=== PATIENT | female | born 1985 | race Caucasian/White ===

== ENCOUNTER 2016-10-19 17:57 | Emergency (ER) | payer BC, MEDICAID, OTHER ==
[2016-10-19] MEDS ORDERED: DIPHENHYDRAMINE HCL IV 50 MG/ML VIAL IVP ONE (18:54)
[2016-10-19] MEDS ORDERED: METOCLOPRAMIDE HCL 10 MG/2 ML VIAL IVP ONE (18:54)
[2016-10-19] MEDS ORDERED: METHYLPREDNISOLONE PF 125MG/VIAL IVP ONE (18:54)
--- NOTE | 2016-10-19 18:59 | Emergency Department Record ---
History of Present Illness - General Chief Complaint: Shortness of breath Stated Complaint: SOB,SCANLON,WEAKNESS IN RT ARM Time Seen by Provider: 10/19/16 18:53 Source: Patient Mode of Arrival: Ambulatory Limitations: No limitations - History of Present Illness Initial Comments: 31 yo female presents to ED with a CC of headache for the past 3 days associated with numbness to the right UE. Patient reports daily headaches, however this episode is more severe than her typical headache and Topamax has not been working for her. Patient reports a previous history of cervical spine disc herniations that contribute to her daily headaches as well as previous TBI. Patient reports negative CT imaging in June for a similar headache. Patient denies fevers, chills, neck stiffness, or weakness to the extremities on examination. Onset/Timin -: Days(s) Radiation: Other Severity: Moderate Severity scale (1-10): 7 Quality: Throbbing Consistency: Constant Improves With: Nothing Worsens With: Nothing Associated Symptoms: Nausea/vomiting Treatment Prior to Arrival Comment:: Soma and topamax - Related Data Home Oxygen Therapy: No Home Medications Medication Instructions Recorded Confirmed Last Taken Carisoprodol [Soma] 350 mg PO ASDIR 10/19/16 10/19/16 10/19/16 Dextroamphetamine/Amphetamine 15 mg PO DAILY 10/19/16 10/19/16 Unknown [Adderall] Levothyroxine Sodium 50 mcg PO DAILY 10/19/16 10/19/16 10/19/16 Topiramate [Topamax] 100 mg PO DAILY 10/19/16 10/19/16 10/19/16 Venlafaxine HCl [Effexor] 150 mg PO DAILY 10/19/16 10/19/16 Unknown Allergies Allergy/AdvReac Type Severity Reaction Status Date / Time lamotrigine [From Lamictal] Allergy RASH Verified 10/19/16 18:08 Travel Screening - Travel/Exposure Within Last 30 Days Have you traveled within the last 30 days?: No Review of Systems Constitutional: Denies: Chills, Fever, Malaise, Night sweats Eyes: Denies: Eye discharge, Eye pain ENT: Denies: Congestion, Ear pain, Epistaxis Respiratory: Denies: Cough Cardiovascular: Denies: Chest pain, Dyspnea on exertion Endocrine: Denies: Fatigue, Heat or cold intolerance Gastrointestinal: Reports: Nausea, Vomiting. Denies: Abdominal pain Genitourinary: Denies: Incontinence, Retention Musculoskeletal: Denies: Arthralgia, Back pain, Gout, Joint swelling Skin: Denies: Bruising, Change in color Neurological: Reports: Headache, Numbness. Denies: Abnormal gait, Confusion, Tingling Psychiatric: Denies: Anxiety Hematological/Lymphatic: Denies: Anemia, Blood Clots Past Medical History - SOCIAL HISTORY Smoking Status: Light tobacco smoker (<10/day) Alcohol Use: Occasional Drug Use: None - RESPIRATORY Hx Respiratory Disorders: No - CARDIOVASCULAR Hx Cardio Disorders: No - NEURO Hx Neuro Disorders: Yes Hx Headaches: Yes (migraines) Comment:: TBI - GI Hx GI Disorders: No - Hx Genitourinary Disorders: No - ENDOCRINE Hx Endocrine Disorders: Yes Hx Thyroid Disease: Yes - MUSCULOSKELETAL Hx Musculoskeletal Disorders: Yes Comment:: bulging discs, bone spurs - PSYCH Hx Psych Problems: Yes Hx Anxiety: Yes Hx Depression: Yes - HEMATOLOGY/ONCOLOGY Hx Hematology/Oncology Disorders: No Family Medical History Any Significant Family History?: Yes Family Hx Comment (NOT TO BE USED IN PLACE OF ITEMS BELOW): Son-Marfan syndrome Physical Exam - General General Appearance: Alert, Oriented x3, Cooperative, Mild distress Limitations: No limitations - Head Head exam: Atraumatic, Normocephalic, Normal inspection Head exam detail: negative: Abrasion, Contusion, Ramachandran's sign, General tenderness, Hematoma, Laceration - Eye Eye exam: Normal appearance. negative: Conjunctival injection, Periorbital swelling, Periorbital tenderness, Scleral icterus - ENT Ear exam: negative: Auricular hematoma, Auricular trauma Nasal Exam: negative: Active bleeding, Discharge, Dried blood, Foreign body Mouth exam: negative: Drooling, Laceration, Muffled voice, Tongue elevation - Neck Neck exam: Normal inspection. negative: Meningismus, Tenderness - Respiratory Respiratory exam: Normal lung sounds bilaterally. negative: Respiratory distress, Rhonchi, Stridor, Wheezes - Cardiovascular Cardiovascular Exam: Regular rate, Normal rhythm, Normal heart sounds - GI/Abdominal GI/Abdominal exam: Soft. negative: Distended, Rebound, Rigid, Tenderness - Rectal Rectal exam: Deferred - exam: Deferred - Extremities Extremities exam: Normal inspection. negative: Calf tenderness, Pedal edema, Tenderness - Back Back exam: Denies: CVA tenderness (R), CVA tenderness (L) - Neurological Neurological exam: Alert, Normal gait, Oriented X3 - Psychiatric Psychiatric exam: Normal affect, Normal mood - Skin Skin exam: Normal color. negative: Abrasion Type of lesion: negative: abrasion Course Vital Signs 10/19/16 18:03 Temperature 98.5 F Pulse Rate 99 H Respiratory 20 Rate Blood Pressure 145/92 Pulse Ox 97 - Reevaluation(s) Reevaluation #1: 10/19/16 18:58 Patient's NIH stroke scale is 0 on examination, and symptoms appear c/w complex migraine headache. Given the patient's recent negative CT imaging of the brain 3 months ago, will treat for probable complex migraine and reassess. Patient agrees with the plan as discussed. Reevaluation #2: 10/19/16 19:55 Patient reassessed and reports that her headache symptoms have improved to 1/10 , reports that she is feeling much better. Repeat NIH stroke scale demonstrates a 0, and again CT imaging is not felt to be of benefit given the patient's improvement in symptoms. Patient reports that she is ready to go home at this time. Disposition Disposition: Discharge Clinical Impression: Complicated migraine Acute headache Qualifiers: Headache type: unspecified Intractability: not intractable Qualified Code(s): R51 - Headache Disposition: Home, Self-Care Condition: (2) Stable Instructions: Acute Headache (ED) Additional Instructions: Return to ED if your symptoms worsen or if you have any concerns. Follow-up with your neurologist in 3-5 days as directed. Forms: Patient Portal Access Time of Disposition: 19:57 Quality - Quality Measures Quality Measures: N/A - Blood Pressure Screening Does Patient Have Any of the Following: No Blood Pressure Classification: Hypertensive Reading Systolic Measurement: 145 Diastolic Measurement: 92 Screening for High Blood Pressure: < First Hypertensive BP, F/U Documented > [ [id number]] First Hypertensive Follow-up Interventions: Referral to alternative/primary care provider.
[2016-10-19] MEDS ORDERED: 0.9 % SODIUM CHLORIDE 1000ML 1,000 ML IV SCH (19:00)
== END 2016-10-19 20:09 | disposition home or self-care (01) ==
LOC: ER 17:57
DX: G43.109 Migraine with aura, not intractable, without status migrainosus (principal); R11.2 Nausea with vomiting, unspecified; R06.02 Shortness of breath; R20.0 Anesthesia of skin
CPT/HCPCS: 96361; 96374; 96375; 99284; J1200; J2765; J2930; J7030